=== PATIENT | female | born 1960 | race Caucasian/White ===

== ENCOUNTER 2017-08-03 07:07 | Emergency (ER) | payer OTHER ==
[~2017-08-03] VITALS: Ht 167.6 cm; Wt 60.0 kg
[~2017-08-03 07:07] MED LIST: CLIN-80 PO; FOLI1TAB16 PO; HYDR-569 PO; IBUP-1985 PO; RANI-366 PO; SULF1TAB49 PO
[2017-08-03] MEDS ORDERED: HYDROcodone/acetaminophen 5mg/325mg tablet PO ONE (08:10)
[2017-08-03] MEDS ORDERED: naproxen 500mg tablet PO ONE (08:10)
[2017-08-03] MEDS ORDERED: NAPR-56 PO (08:32)
[2017-08-03 08:48] VITALS: BP 131/80
== END 2017-08-03 08:55 | disposition home or self-care (01) ==
LOC: ER 07:08
DX: S86.919A Strain of unspecified muscle(s) and tendon(s) at lower leg level, unspecified leg, initial encounter (principal); I10 Essential (primary) hypertension; F12.10 Cannabis abuse, uncomplicated; X50.1XXA Overexertion from prolonged static or awkward postures, initial encounter; Y93.89 Activity, other specified; Y92.89 Other specified places as the place of occurrence of the external cause; Y99.8 Other external cause status
CPT/HCPCS: 73564; 99284; A6449